=== PATIENT | female | born 1990 | race Caucasian/White ===

== ENCOUNTER 2016-12-13 04:18 | Observation (INO) | payer OTHER ==
[~2016-12-13] VITALS: Ht 157.5 cm; Wt 70.0 kg
[~2016-12-13 04:18] MED LIST: Z.0.NO CURRENT MEDS
[2016-12-13 04:19] VITALS: BP 131/81; PULSE 101; RESP 20; TEMP 97.9; O2SAT 100
[2016-12-13] MEDS ORDERED: IBUP800T23 PO (04:29)
--- NOTE | 2016-12-13 04:43 | PD ---
HPI Chief Complaint: Abdominal Pain Time Seen by Provider: 04:29 Travel History International Travel<30 days: No Contact w/Intl Traveler<30days: No Traveled to known affect area: No History of Present Illness HPI Healthy 26-year-old female here with complaint of abdominal pain. Approximately 8 AM yesterday morning patient developed abdominal pain. This is primarily periumbilical and right sided. More in the low abdomen. She notes some nausea but no vomiting. No urinary symptoms, abnormal vaginal discharge. Patient is on Depo-Provera and does not frequently get menses, remembers the last time having a menstrual period sometime in May. She does not believe she is . She denies any fevers or chills. PFSH Past Medical History Diminished Hearing: No Migraines: Yes Tetanus Vaccination: < 5 Years Influenza Vaccination: Yes ?: Not LMP: irreg Past Surgical History Other Surgery: Yes (arthroscopic right knee surgery) Social History Alcohol Use: Yes (occ) Tobacco Use: No Substance Use: No Allergies-Medications (Allergen,Severity, Reaction): Coded Allergies: Imitrex (Verified Allergy, Severe, 12/13/16) Reglan (Verified Adverse Reaction, Severe, DYSPNEA, 12/13/16) Reported Meds & Prescriptions Reported Meds & Active Scripts Active Reported Ibuprofen 800 Mg Tab 800 Mg PO DAILY Review of Systems Except as stated in HPI: all other systems reviewed are Neg Physical Exam Narrative GENERAL: Well-appearing female in no acute distress SKIN: Focused skin assessment warm/dry. HEAD: Normocephalic. EYES: No scleral icterus. No injection or drainage. ENT: Mucous membranes pink and moist. NECK: Supple CARDIOVASCULAR: Regular rate and rhythm. No murmur appreciated. RESPIRATORY: No accessory muscle use. Clear to auscultation. Breath sounds equal bilaterally. GASTROINTESTINAL: Abdomen soft, right lower quadrant tenderness to palpation greatest at McBurney's point. No rebound or guarding. GENTIOURINARY: Mild cervical erythema on speculum examination with physiologic appearing vaginal discharge. No cervical motion tenderness, uterus or left adnexal tenderness. Mild tenderness in the right adnexa but the majority of her pain is superior in the abdomen proper MUSCULOSKELETAL: Normal gait NEUROLOGICAL: Awake and alert. Normal speech. PSYCHIATRIC: Appropriate mood and affect; insight and judgment normal. Data Data Last Documented VS Vital Signs Date Time Temp Pulse Resp B/P Pulse Ox O2 Delivery O2 Flow Rate FiO2 12/13/16 04:19 97.9 101 20 131/81 100 Room Air Orders Basic Metabolic Panel (Bmp) (12/13/16 04:38) Complete Blood Count With Diff (12/13/16 04:38) Urinalysis - C+S If Indicated (12/13/16 04:38) Ct Abd/Pel W/O Iv Contrast (12/13/16 04:38) Iv Access Insert/Monitor (12/13/16 04:38) Ecg Monitoring (12/13/16 04:38) Oximetry (12/13/16 04:38) Ondansetron Inj (Zofran Inj) (12/13/16 04:45) Sodium Chloride 0.9% Flush (Ns Flush) (12/13/16 04:45) Ketorolac Inj (Toradol Inj) (12/13/16 04:45) Ed Urine Pregnancytest Poc (12/13/16 04:38) Gc And Chlamydia Pcr (12/13/16 04:38) Wet Prep Profile (12/13/16 04:38) Urine Culture (12/13/16 04:46) Piperacil-Tazo 4.5 Gm Premix (Zosyn 4.5 (12/13/16 06:00) Labs Laboratory Tests Test 12/13/16 12/13/16 12/13/16 04:42 04:46 04:53 Clue Cells (Wet Prep) NONE SEEN Vaginal Trichomonas (Wet Prep) NONE SEEN Vaginal Yeast (Wet Prep) NONE SEEN Urine Color LIGHT-YELLOW Urine Turbidity HAZY Urine pH 6.0 Urine Specific [place] 1.009 Urine Protein NEG mg/dL Urine Glucose (UA) NEG mg/dL Urine Ketones NEG mg/dL Urine Occult Blood NEG Urine Nitrite NEG Urine Bilirubin NEG Urine Urobilinogen LESS THAN 2.0 MG/DL Urine Leukocyte Esterase SMALL Urine WBC 2 /hpf Urine Squamous Epithelial 1 /hpf Cells Urine Bacteria MOD /hpf Microscopic Urinalysis Comment CULTURE INDICATED White Blood Count 10.6 TH/MM3 Red Blood Count 5.06 MIL/MM3 Hemoglobin 15.2 GM/DL Hematocrit 43.2 % Mean Corpuscular Volume 85.4 FL Mean Corpuscular Hemoglobin 30.0 PG Mean Corpuscular Hemoglobin 35.1 % Concent Red Cell Distribution Width 12.3 % Platelet Count 248 TH/MM3 Mean Platelet Volume 8.5 FL Neutrophils (%) (Auto) 71.7 % Lymphocytes (%) (Auto) 20.9 % Monocytes (%) (Auto) 6.3 % Eosinophils (%) (Auto) 0.8 % Basophils (%) (Auto) 0.3 % Neutrophils # (Auto) 7.6 TH/MM3 Lymphocytes # (Auto) 2.2 TH/MM3 Monocytes # (Auto) 0.7 TH/MM3 Eosinophils # (Auto) 0.1 TH/MM3 Basophils # (Auto) 0.0 TH/MM3 CBC Comment DIFF FINAL Differential Comment Sodium Level 143 MEQ/L Potassium Level 3.5 MEQ/L Chloride Level 111 MEQ/L Carbon Dioxide Level 22.0 MEQ/L Anion Gap 10 MEQ/L Blood Urea Nitrogen 10 MG/DL Creatinine 0.78 MG/DL Estimat Glomerular Filtration 91 ML/MIN Rate Random Glucose 100 MG/DL Calcium Level 8.9 MG/DL MDM Medical Decision Making Medical Screen Exam Complete: Yes Emergency Medical Condition: Yes Medical Record Reviewed: Yes Differential Diagnosis 26-year-old female with approximately 24 hours of periumbilical and right lower quadrant abdominal pain, greatest at McBurney point on abdominal examination. Highly suspicious for appendicitis, differential includes , ectopic , UTI, ureterolithiasis, PID, ovarian cysts, ovarian torsion Narrative Course Patient placed on monitor, IV established and blood obtained. Given 30 mg Toradol, 4 mg Zofran. CBC, CMP, urinalysis, urine test, GC/Chlamydia , wet prep were obtained and unremarkable. CT abdomen and pelvis showed acute appendicitis. Patient treated with Zosyn and will be admitted for operative management. Diagnosis Primary Impression: Acute appendicitis Qualified Code: K35.80 - Acute appendicitis, unspecified acute appendicitis type Admitting Information Admitting Physician Requests: Kari Da Silva MD Dec 13, 2016 04:43
[2016-12-13] MEDS ORDERED: ONDANSETRON HCL 4 MG/2 ML VIAL IVP ONE (04:45)
[2016-12-13] MEDS ORDERED: SODIUM CHLORIDE 0.9% FLUSH 10 ML FLUSH IV FLUSH PRN ×3 (04:45→11:00)
[2016-12-13] MEDS ORDERED: KETOROLAC TROMETHAMINE 30 MG/ML (IVP) VIAL IVP ONE (04:45)
[2016-12-13 05:11] LABS: BACTERIA, URINE MOD /hpf; BLOOD, URINE NEG (NEG); COMMENT (UR) CULTURE INDICATED; CULTURE IF INDICATED CULTURE INDICATED; GLUCOSE,URINE NEG (NEG); KETONE, URINE NEG (NEG); NITRITE,URINE NEG (NEG); SQUAMOUS EPITHELIAL CELL URINE 1 /hpf (0-5); URINE COLOR LIGHT-YELLOW (YELLW/STRAW)
[2016-12-13 05:12] LABS: AUTOMATED NEUTROPHIL # 7.6 TH/MM3 (1.8-7.7); BASOPHIL % 0.3 % (0.0-2.0); EOSINOPHIL # 0.1 TH/MM3 (0-0.4); EOSINOPHIL % 0.8 % (0.0-4.0); HEMATOCRIT 43.2 % (35.0-46.0); HEMO FLAGS DIFF FINAL; LYMPH % 20.9 % (9.0-44.0); LYMPHOCYTE # 2.2 TH/MM3 (1.0-4.8); MEAN CELL VOLUME 85.4 FL (80.0-100.0); MEAN CORPUSCULAR HGB CONC 35.1 % (32.0-36.0); MONO % 6.3 % (0.0-8.0); NEUT % 71.7 % (16.0-70.0); PLATELET COUNT 248 TH/MM3 (150-450); RED BLOOD COUNT 5.06 MIL/MM3 (4.00-5.30); RED CELL DISTRIBUTION WIDTH 12.3 % (11.6-17.2); WHITE BLOOD COUNT 10.6 TH/MM3 (4.0-11.0)
[2016-12-13 05:31] LABS: POTASSIUM 3.5 MEQ/L (3.5-5.1)
--- NOTE | 2016-12-13 05:51 | RADRPT ---
EXAM DATE/TIME: 12/13/2016 05:19 [facility] COMPARISON: No previous studies available for comparison. INDICATIONS : Abdominal pain; rule out appendicitis. ORAL CONTRAST: No oral contrast ingested. RADIATION DOSE: 6.81 CTDIvol (mGy) MEDICAL HISTORY : None SURGICAL HISTORY : None. ENCOUNTER: Initial ACUITY: 1 day PAIN SCALE: 6/10 LOCATION: Abdomen TECHNIQUE: Volumetric scanning of the abdomen and pelvis was performed. Using automated exposure control and ad justment of the mA and/or kV according to patient size, radiation dose was kept as low as reasonably achievable to obtain optimal diagnostic quality images. FINDINGS: LOWER LUNGS: The visualized lower lungs are clear. LIVER: Homogeneous density without lesion. There is no dilation of the biliary tree. No calcified gallston es. SPLEEN: Normal size without lesion. PANCREAS: Within normal limits. KIDNEYS: Normal in size and shape. There is no mass, stone, or hydronephrosis. ADRENAL GLANDS: Within normal limits. VASCULAR: There is no aortic aneurysm. BOWEL/MESENTERY: The appendix is identified posterior medial to the cecum. It measures 10 mm in diameter and demonstr ates stranding/hazy inflammatory changes in the surrounding fat. No evidence of abscess or free air. No bowel dilatation. ABDOMINAL WALL: Within normal limits. RETROPERITONEUM: There is no lymphadenopathy. BLADDER: No wall thickening or mass. REPRODUCTIVE: Within normal limits. INGUINAL: There is no lymphadenopathy or hernia. MUSCULOSKELETAL: Within normal limits for patient age. CONCLUSION: 1. Dilated appendix with surrounding inflammatory changes indicating acute appendicitis. 2. No evidence of abscess or free air. Lyndon Sanchez MD on December 13, 2016 at 5:37 Board Certified Radiologist. This report was verified electronically.
[2016-12-13] MEDS ORDERED: PIPERACIL-TAZO 4.5 GM PREMIX 100 ML IV ONE (06:00)
[2016-12-13 06:24] LABS: CHLAMYDIA PCR NOT DETECTED (NOT DETECT); NEISSERIA PCR NOT DETECTED (NOT DETECT)
[2016-12-13 06:47] VITALS: BP 128/76; PULSE 94; RESP 16; O2SAT 100
[2016-12-13 07:31] VITALS: BP 110/56; PULSE 109; RESP 16; O2SAT 96
--- NOTE | 2016-12-13 08:23 | MH ---
cc: ANAMARIA ROMERO M.D. DATE OF ADMISSION: 12/13/2016 ADMISSION DIAGNOSIS Acute appendicitis. HISTORY OF PRESENT ILLNESS This is a very pleasant 26-year-old otherwise healthy woman who at 8:00 a.m. Wednesday morning awoke with abdominal pain, progressed from periumbilical to right lower quadrant associated with nausea, no vomiting. She has had no bowel movement. She has passed urine. She has had decreased appetite. She was came to the emergency department. She was evaluated, her white count was 10, had a left shift. She had CT scan which shows a distended inflamed appendix. I was contacted to provide surgical care. The patient has had no prior abdominal surgeries. ALLERGIES IMITREX AND REGLAN. Imitrex causes hypertension and Reglan causes difficulty breathing. MEDICATIONS Her medications include: 1. Ibuprofen 800 mg. 2. She also takes a I think Depo-Provera. PAST SURGICAL HISTORY She has had previous right knee surgery by Dr. Franco. She had no anesthesia problems for her right knee surgery. SOCIAL HISTORY She works as a [employer]. She denies tobacco abuse. She says she drank some alcohol yesterday. She denies HIV or hepatitis risk factors. FAMILY HISTORY Significant for her mother having had her appendix removed. REVIEW OF SYSTEMS She denies unusual bleeding tendencies. She has no visual, hearing problems. She has sinus problems and migraine headaches. She denies asthma, bronchitis, pneumonia, history of heart disease, irregular heart beat or heart murmur. She has no history of acid reflux, liver, kidney or female organ disorders. She has had no seizures. She has had no arthritis. She has never been on blood thinning medications. She has never been told she has diabetes or thyroid gland problem. PHYSICAL EXAMINATION GENERAL: Physical examination shows a young woman in mild distress. She is uncomfortable. VITAL SIGNS: Temperature is 97.9, pulse 109, respiratory rate is 16, blood pressure is 110/56, O2 sats 96%. HEENT: She is normocephalic, atraumatic. Pupils are equal, round, reactive to light. Her sclerae are anicteric. Oropharynx is clear without mucosal lesions. NECK: Her neck is supple without adenopathy. She has midline trachea. No jugular venous distension, no thyromegaly. LUNGS: Lungs are clear and equal anteriorly bilaterally. HEART: Heart sounds are regular without obvious murmur, rub or gallop. BREASTS/GENTITAL/RECTAL: Exams are deferred. ABDOMEN: Abdomen is soft and nondistended. She has got scar from umbilical ring. She has a tattoo in the right groin. She has normal bowel sounds. She has tenderness to percussion, worse on the right lower quadrant. She has pinpoint tenderness to palpation at McBurney's point in the right lower quadrant with focal rebound. She has no obvious hernias. EXTREMITIES: Extremities show no cyanosis, clubbing or edema. Note a tattoo down on the right foot, lateral foot. She has equal radial and dorsalis pedis pulses. NEUROLOGIC: She is awake, alert, oriented, equal bilateral tail end rider strength and no gross motor or sensory deficit. LABORATORY DATA Initial laboratory values include a hemoglobin of 15.2, platelet count of 248. Her potassium is 3.5, creatinine 0.78. Urinalysis shows small amount leukocyte esterase and moderate bacteria and culture was indicated. She has no evidence of Trichomonas or vaginal yeast and there was no chlamydia or gonorrhea detected. IMAGING STUDIES Imaging studies include the CT scan of the abdomen and pelvis which shows findings consistent with acute appendicitis. ASSESSMENT A 26-year-old with acute appendicitis. Recommendation is made for laparoscopic appendectomy, possible open. The procedure in detail plus risks of bleeding, infection, injury to intra-abdominal contents including bowel, ureter, bladder, possible open surgery, DVT, pulmonary embolus, expectations for recovery. The patient understands and wishes to proceed. Surgery will be performed in the very near future at [facility] under general anesthesia. The patient has received antibiotics in the emergency department. MD XIAO Cervantes/WOLFL /7:41 AM /8:13 AM
[2016-12-13] MEDS ORDERED: BUPIVACAINE/EPINEPHRINE 0.5% PF 30 ML VIAL ONE (09:47)
[2016-12-13] MEDS ORDERED: ACETAMINOPHEN 1000 MG/100 ML VIAL IV ONE (09:57)
--- NOTE | 2016-12-13 10:58 | PD.OP ---
Operative Report Date of Surgery: Dec 13, 2016 Preoperative Diagnosis: acute appendicitis Postoperative Diagnosis: same Procedure: lap appie Anesthesia: general Surgeon: John Crocker Skating Carhop(s): Javier Operation and Findings: appendix to path. EBL less than 5 ml. John Crocker MD Dec 13, 2016 10:58
[2016-12-13] MEDS ORDERED: ONDANSETRON HCL 4 MG/2 ML VIAL IV PRN (11:00)
[2016-12-13] MEDS ORDERED: ACETAMINOPHEN/HYDROcodone 325 MG/5 MG TAB PO PRN ×2 (11:00)
[2016-12-13] MEDS ORDERED: MAGNESIUM HYDROXIDE SUSP 30 ML CUP PO PRN (11:00)
[2016-12-13] MEDS ORDERED: HYDROmorphone HCL PF 1 MG/ML VIAL IV PRN (11:00)
[2016-12-13] MEDS ORDERED: Post-op Orders (for Pharmacy) MISC XX ONE ×2 (11:00)
[2016-12-13] MEDS ORDERED: DO NOT ADM ANY ANTICOAGULANT DRUGS PRN (11:00)
[2016-12-13] MEDS ORDERED: HYDR-3533 PO (11:03)
[2016-12-13] MEDS ORDERED: MIDAZOLAM HCL 2 MG/2 ML VIAL ONE (11:04)
[2016-12-13] MEDS ORDERED: fentaNYL CITRATE 250 MCG/5 ML AMP ONE (11:05)
[2016-12-13] MEDS ORDERED: *morphine SULFATE 8 MG/ML PERIprocedure ONLY ONE (11:39)
[2016-12-13 12:00] VITALS: BP 123/82; PULSE 105; RESP 16; TEMP 97.7; O2SAT 96
[2016-12-13] MEDS ORDERED: LACTATED RINGER'S 1000 ML INJ 1,000 ML IV SCH (12:00)
[2016-12-13] MEDS ORDERED: PROPOFOL 200 MG/20 ML AMP IV ONE (12:00)
[2016-12-13] MEDS ORDERED: LACTATED RINGER'S 1000 ML INJ 1,000 ML IV ONE (12:00)
[2016-12-13] MEDS ORDERED: ONDANSETRON HCL 4 MG/2 ML VIAL IV PUSH ONE (12:00)
[2016-12-13] MEDS ORDERED: NEOSTIGMINE 3 MG/3 ML SYR IV ONE (12:00)
[2016-12-13] MEDS: KETOROLAC TROMETHAMINE 30 MG/ML (IVP) VIAL IV PUSH SCH ×2 (12:58→18:06)
[2016-12-13 16:00] VITALS: BP 115/70; PULSE 98; RESP 16; TEMP 97.3; O2SAT 98
[2016-12-13] MEDS ORDERED: ACETAMINOPHEN 1000 MG/100 ML VIAL IV SCH (16:00)
[2016-12-13] MEDS ORDERED: SODIUM CHLORIDE 0.9% FLUSH 10 ML FLUSH IV FLUSH SCH ×2 (21:00)
[2016-12-14] MEDS ORDERED: ENOXAPARIN SODIUM 30 MG/0.3 ML SYRINGE SQ SCH (10:00)
--- NOTE | 2016-12-14 13:22 | MP ---
cc: [facility] DATE OF SURGERY 12/13/2016 PREOPERATIVE DIAGNOSIS Acute appendicitis. POSTOPERATIVE DIAGNOSIS Acute appendicitis. PROCEDURE Laparoscopic appendectomy. SURGEON Dr. John Crocker ANESTHESIA General. INDICATIONS A 26-year-old with history of periumbilical right lower quadrant pain. White count was 10.6 with a left shift. CT scan showed an inflamed, distended appendix. Plans were made for laparoscopic appendectomy. INTRAOPERATIVE FINDINGS Consistent with early acute appendicitis. Appendix removed and sent to pathology. Intraabdominal contents including uterus, tubes and ovaries appeared normal. ESTIMATED BLOOD LOSS Less than 5 mL. DESCRIPTION OF PROCEDURE IN DETAIL The patient was identified as Jennie Fowler, taken to the operating room and placed in supine position. Sequential compression devices were placed on the bilateral lower extremities. Following induction of adequate general endotracheal anesthesia, the patient's abdomen was prepped and draped in the usual sterile fashion with Betadine. A time-out procedure was performed. Following completion of the time-out procedure to everyone's satisfaction within the room, 0.5% Marcaine with epinephrine was placed at each incision site. An incision within the umbilicus, beneath umbilical piercing scars was carried out with scalpel. Dissection continued posteriorly to the level of the midline fascia. The base of the umbilicus was retracted anteriorly. The fascia was incised superior to the umbilicus in a vertical fashion allowing for entry into the peritoneal cavity with the surgeon's finger. The [employer] balloon Bob trocar was placed in the peritoneal cavity, its balloon inflated with CO2 insufflation until a level of 15 mmHg ensued. Two infraumbilical midline 5-mm trocars were then placed in the peritoneal cavity under direct laparoscopic view after incision of the skin with a scalpel. Attention was turned to identification of the appendix. The appendix and the cecum were more in the mid-right lateral abdomen. The appendix was able to be grasped and had a relatively small mesentery which was taken down with the harmonic scalpel down to the base of the appendix to the level of the cecum. 0-PDS Endoloop was placed across the base of the appendix at the level of the cecum and the appendix amputated distal to this with a harmonic scalpel. It was placed into an Endo-retriever bag and removed through the supraumbilical fascial port incision site and passed off the field for pathologic evaluation. The mesentery was hemostatic. The ligature was intact. There was no evidence of injury to the cecum or the terminal ileum. The tubes and ovaries and uterus were evaluated. They all appeared normal. There was a small cyst and on the left ovary which appeared benign, physiologic. Irrigation of right lower quadrant and pelvis was performed. There was no spillage of feculent material. The liver and gallbladder appeared normal. The intestine that was visualized appeared normal. About but 10 cc of local anesthetic was placed in the right lower quadrant. Trocars were removed under direct visualization. There was no evidence of bleeding from trocar sites. The abdomen was desufflated through the supraumbilical port which was then removed. The supraumbilical fascial incision was closed with interrupted 0 Vicryl sutures. Port sites were irrigated copiously with saline. Skin incisions were approximated with 4-0 Monocryl subcuticular sutures. Dressings were applied, Mastisol and 1/2-inch brown Steri-Strips. The patient tolerated the procedure without apparent complication. Sponge, needle and instrument counts were correct at the end of the case. MD XIAO Cervantes/JUSTINO /11:00 AM /1:13 PM
== END 2016-12-13 18:25 | disposition home or self-care (01) ==
LOC: NEPE 04:18 → NEDA 05:57 → N06A 11:53
PROVIDERS: ADMIT Surgery Trauma Surgery; ATTEND Surgery Trauma Surgery
DX: K35.80 Unspecified acute appendicitis (principal); R11.0 Nausea; R82.99 Other abnormal findings in urine
CPT/HCPCS: 00840; 44970; 74176; 80048; 81001; 84703; 85025; 87086; 87210; 87491; 87591; 88304; 99285; G0378; J0131; J1885; J2250; J2270; J2405; J2543; J2710; J3010; J7120

== ENCOUNTER 2017-04-08 13:50 | Emergency (ER) | payer OTHER ==
[~2017-04-08] VITALS: Ht 157.5 cm; Wt 56.0 kg
[~2017-04-08 13:50] MED LIST changes: +HYDR-3533 PO; +IBUP800T23 PO; -Z.0.NO CURRENT MEDS
[2017-04-08 13:52] VITALS: BP 181/99; PULSE 108; RESP 22; TEMP 98.8; O2SAT 99
--- NOTE | 2017-04-08 14:05 | PD ---
Physical Exam Time Seen by Provider: 14:01 Narrative 27-year-old female presents to the emergency department with complaint of elevated blood pressure with blurry vision, headache, nausea, skin tingling, shortness of breath. Denies chest pain. Denies history of hypertension. Woke up this morning not feeling well. Blood pressure work was 173/112 with heart rate of 95. Blood pressure and heart rate elevated in triage. Patient seen in triage. Vital signs reviewed. Patient awaiting bed placement. Data Data Last Documented VS Vital Signs Date Time Temp Pulse Resp B/P (MAP) Pulse Ox O2 Delivery O2 Flow Rate FiO2 04/08/17 13:52 98.8 108 22 181/99 (126) 99 MDM Supervised Visit with DOUGLAS: Karla Whitaker Apr 08, 2017 14:05
[2017-04-08] MEDS ORDERED: DEPO150I IM (14:12)
[2017-04-08] MEDS ORDERED: GABA100C4 PO (14:12)
[2017-04-08] MEDS ORDERED: BACL10TA PO (14:12)
[2017-04-08 14:16] VITALS: BP 164/93; PULSE 88; RESP 20; O2SAT 98
[2017-04-08] MEDS ORDERED: PROCHLORPERAZINE INJ 10 MG/2 ML VIAL IV PUSH ONE (14:30)
[2017-04-08] MEDS ORDERED: diphenhydrAMINE HCL 50 MG/ML VIAL IV PUSH ONE (14:30)
[2017-04-08] MEDS ORDERED: KETOROLAC TROMETHAMINE 30 MG/ML (IVP) VIAL IV PUSH ONE (14:30)
--- NOTE | 2017-04-08 14:40 | PD ---
HPI Chief Complaint: Hypertension Time Seen by Provider: 14:10 Travel History International Travel<30 days: No Contact w/Intl Traveler<30days: No Traveled to known affect area: No History of Present Illness HPI 27-year-old female presents to the emergency room for evaluation of headache and hypertension that started earlier today. Patient states she woke up feeling unwell and nauseous. She did not actually throw up. States she went to work and her symptoms worsened. She developed chest tightness and shortness of breath. Patient states she felt like all the blood rest to her feet and she had to sit down. 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 Patient has no history of hypertension. States she initially thought she was developing a migraine because her symptoms were similar to how her typical [place] are but rather than developing a migraine, she developed a tension headache. Patient has not taken anything for symptoms. States they were persistent so she came to the emergency room. No chronic medical conditions except for chronic migraines. She had an MRI of her brain in August of this year because her grandmother and great grandmother from aneurysms. She denies possibility of and has not had intercourse in over a year. She is on the Depo Provera shot. [facility] Past Medical History Diminished Hearing: No Migraines: Yes ?: Not LMP: 2015-on Depo Past Surgical History Appendectomy: Yes Pacemaker: No Other Surgery: Yes (arthroscopic right knee surgery) Social History Alcohol Use: Yes (occ) Tobacco Use: No Substance Use: No Allergies-Medications (Allergen,Severity, Reaction): Coded Allergies: sumatriptan (Unverified Allergy, Severe, 04/08/17) metoclopramide (Unverified Adverse Reaction, Severe, DYSPNEA, 04/08/17) Reported Meds & Prescriptions Reported Meds & Active Scripts Active Tkqfomxxbheqn-Dkwgfcqpn-GIGB (Arnzkozxbtwjc-Vgcuceojpwo-Nlxiogejxmtvq) 65-100- 325 Mg Cap 1 Cap PO Q4-6H Reported Depo-Provera Inj (Medroxyprogesterone Inj) 150 Mg/Ml Inj Mg IM ONCE Baclofen 10 Mg Tab 10 Mg PO TID Gabapentin 100 Mg Cap 100 Mg PO HS Review of Systems Except as stated in HPI: all other systems reviewed are Neg Physical Exam Narrative GENERAL: Well-developed, well-nourished female in no acute distress. Afebrile. Ambulatory. SKIN: Focused skin assessment warm/dry. HEAD: Atraumatic. Normocephalic. EYES: Pupils equal and round. No scleral icterus. No injection or drainage. ENT: Mucosa pink and moist. Moderate erythema without edema or exudates. No uvular edema. No uvular, palatal, or tonsillar deviation. Airway patent. Nasal turbinates appear normal without nasal blood, purulent drainage or septal hematoma. EARS: Bilateral pinnae and external canals appear within normal limits. Bilateral tympanic membranes without erythema, dullness or perforation. NECK: Trachea midline. No JVD. CARDIOVASCULAR: Regular rate and rhythm. No murmur appreciated. RESPIRATORY: No accessory muscle use. Clear to auscultation. Breath sounds equal bilaterally. GASTROINTESTINAL: Abdomen soft, non-tender, nondistended. Hepatic and splenic margins not palpable. NEUROLOGICAL: Awake and alert. Cranial nerves II through XII intact. Motor and sensory grossly within normal limits. Five out of 5 muscle strength in all muscle groups. Normal speech. No pronator drift in upper or lower extremities. Data Data Last Documented VS Vital Signs Date Time Temp Pulse Resp B/P (MAP) Pulse Ox O2 Delivery O2 Flow Rate FiO2 04/08/17 15:31 72 20 117/70 (86) 100 04/08/17 13:52 98.8 Orders Orders Prochlorperazine Inj (Compazine Inj) (04/08/17 14:30) Diphenhydramine Inj (Benadryl Inj) (04/08/17 14:30) Ketorolac Inj (Toradol Inj) (04/08/17 14:30) Group A Rapid Strep Screen (04/08/17 14:34) Influenzae A/B Antigen (04/08/17 14:34) Iv Access Insert/Monitor (04/08/17 14:46) Ecg Monitoring (04/08/17 14:46) Complete Blood Count With Diff (04/08/17 14:46) Basic Metabolic Panel (Bmp) (04/08/17 14:46) D-Dimer (04/08/17 14:46) Troponin I (04/08/17 14:46) Electrocardiogram (04/08/17 14:46) Chest, Single Ap (04/08/17 14:46) Strep Culture (Group A) (04/08/17 15:10) Ed Discharge Order (04/08/17 16:19) Labs Laboratory Tests Test 04/08/17 15:10 White Blood Count 5.4 TH/MM3 Red Blood Count 4.80 MIL/MM3 Hemoglobin 14.3 GM/DL Hematocrit 41.7 % Mean Corpuscular Volume 86.9 FL Mean Corpuscular Hemoglobin 29.9 PG Mean Corpuscular Hemoglobin Concent 34.4 % Red Cell Distribution Width 12.1 % Platelet Count 240 TH/MM3 Mean Platelet Volume 8.7 FL Neutrophils (%) (Auto) 43.9 % Lymphocytes (%) (Auto) 44.1 % Monocytes (%) (Auto) 9.4 % Eosinophils (%) (Auto) 1.9 % Basophils (%) (Auto) 0.7 % Neutrophils # (Auto) 2.4 TH/MM3 Lymphocytes # (Auto) 2.4 TH/MM3 Monocytes # (Auto) 0.5 TH/MM3 Eosinophils # (Auto) 0.1 TH/MM3 Basophils # (Auto) 0.0 TH/MM3 CBC Comment DIFF FINAL Differential Comment D-Dimer Quantitative (PE/DVT) LESS THAN 0.19 MG/L FEU Blood Urea Nitrogen 8 MG/DL Creatinine 0.69 MG/DL Random Glucose 85 MG/DL Calcium Level 8.7 MG/DL Sodium Level 142 MEQ/L Potassium Level 3.6 MEQ/L Chloride Level 112 MEQ/L Carbon Dioxide Level 23.3 MEQ/L Anion Gap 7 MEQ/L Estimat Glomerular Filtration Rate 104 ML/MIN Troponin I LESS THAN 0.02 NG/ML MDM Medical Decision Making Medical Screen Exam Complete: Yes Emergency Medical Condition: Yes Medical Record Reviewed: Yes Differential Diagnosis Panic attack, hypertensive urgency, PE unlikely Narrative Course 27-year-old female presents to the emergency room for evaluation of headache and hypertension that started earlier today. Patient states she woke up feeling unwell but went to work. At work she felt lightheaded, like she was going to pass out. She sat down and coworkers took her blood pressure and found it to be 173/112. Patient felt other strange symptoms that she feels when she gets an aura prior to migraine. She became concerned at her hypertension and came to the emergency room for evaluation. She has persistent frontal headache. Initially patient stated she had no chest pain but upon reevaluation began complaining of chest heaviness. At this time chest pain workup was initiated. IV access established and basic labs obtained. CBC and BMP are unremarkable. EKG shows sinus rhythm with a rate of 85, no ST changes. Troponin less than than 0.02. D-dimer is negative. Chest x-ray is unremarkable. Physical exam is unremarkable. Lungs sounds clear and equal bilaterally. No focal neurological deficits. She has moderately erythematous pharynx. Rapid strep and influenza are negative. Patient given IV Toradol, Compazine, and Benadryl for headache without significant relief. Without any intervention for her blood pressure it decreased from 181/99 to 117/70. Patient 's symptoms may be due to panic attack or upper respiratory infection. She will be discharged with prescription for Midrin which she typically takes for her headaches and provides good relief. Told to follow-up with her primary care physician and neurologist or return for worsening symptoms. She understands and agrees to plan. Diagnosis Primary Impression: Acute headache Qualified Codes: G44.209 - Tension-type headache, unspecified, not intractable Referrals: Primary Care Physician Additional Instructions: Rest and drink plenty of fluids. Follow-up with a primary care physician. Return to the emergency room for worsening symptoms. Scripts Lkjnnatzxhpsd-Pudkvubifcd-Qhonzckgjbafz (Hlortaigkkhja-Fsnmzakej-SWZL) 65-100- 325 Mg Cap 1 CAP PO Q4-6H, #10 Prov: Savana Cooney MD 04/08/17 Disposition: 01 DISCHARGE HOME Condition: Stable Kisha Anguiano Apr 08, 2017 14:39
[2017-04-08 15:02] VITALS: BP 126/81; PULSE 74; RESP 20; O2SAT 98
[2017-04-08 15:27] LABS: AUTOMATED NEUTROPHIL # 2.4 TH/MM3 (1.8-7.7); BASOPHIL % 0.7 % (0.0-2.0); EOSINOPHIL # 0.1 TH/MM3 (0-0.4); EOSINOPHIL % 1.9 % (0.0-4.0); HEMATOCRIT 41.7 % (35.0-46.0); HEMO FLAGS DIFF FINAL; LYMPH % 44.1 % (9.0-44.0); LYMPHOCYTE # 2.4 TH/MM3 (1.0-4.8); MEAN CELL VOLUME 86.9 FL (80.0-100.0); MEAN CORPUSCULAR HEMOGLOBIN 29.9 PG (27.0-34.0); MEAN CORPUSCULAR HGB CONC 34.4 % (32.0-36.0); MONO % 9.4 % (0.0-8.0); NEUT % 43.9 % (16.0-70.0); PLATELET COUNT 240 TH/MM3 (150-450); RED CELL DISTRIBUTION WIDTH 12.1 % (11.6-17.2); WHITE BLOOD COUNT 5.4 TH/MM3 (4.0-11.0)
[2017-04-08 15:31] VITALS: BP 117/70; PULSE 72; RESP 20; O2SAT 100
--- NOTE | 2017-04-08 15:31 | RADRPT ---
EXAM DATE/TIME: 04/08/2017 15:11 [place] COMPARISON: No previous studies available for comparison. INDICATIONS : Shortness of breath. MEDICAL HISTORY : Hypertension. SURGICAL HISTORY : Appendectomy. ENCOUNTER: Initial ACUITY: 1 day PAIN SCORE: 0/10 LOCATION: Bilateral chest FINDINGS: A single view of the chest demonstrates the lungs to be symmetrically aerated without evidence of mas s, infiltrate or effusion. The cardiomediastinal contours are unremarkable. Osseous structures are intact. CONCLUSION: Normal examination. Arnol Arrieta Jr., MD on April 08, 2017 at 15:30 Board Certified Radiologist. This report was verified electronically.
[2017-04-08 15:49] LABS: ANION GAP 7 MEQ/L (5-15); BICARBONATE 23.3 MEQ/L (21.0-32.0); BLOOD UREA NITROGEN 8 MG/DL (7-18); CHLORIDE 112 MEQ/L (98-107); GLOMERULAR FILTRATION RATE 104 ML/MIN (>89); POTASSIUM 3.6 MEQ/L (3.5-5.1); SODIUM (NA) 142 MEQ/L (136-145)
[2017-04-08] MEDS ORDERED: ACET1CAP2 PO (16:19)
--- NOTE | 2017-04-08 18:47 | EKG ---
Date Performed: 04/08/2017 Time Performed: 14:20:05 PTAGE: 27 years EKG: Sinus rhythm NORMAL ECG NO PREVIOUS TRACING DOCTOR: Zohaib Montaño Interpretating Date/Time 04/08/2017 18:45:30
== END 2017-04-08 17:06 | disposition home or self-care (01) ==
LOC: NEPD 13:50
DX: G44.209 Tension-type headache, unspecified, not intractable (principal); I10 Essential (primary) hypertension
CPT/HCPCS: 71010; 80048; 84484; 85025; 85379; 87081; 87804; 87880; 93005; 96374; 96375; 99285; J0780; J1200; J1885